=== PATIENT | male | born 1965 | race Hispanic/Latino ===

== ENCOUNTER 2020-05-11 12:30 | Emergency (ER) | payer OTHER ==
[2020-05-11] MEDS ORDERED: ONDANSETRON HCL 4 MG/2 ML VIAL ONE (13:13)
[2020-05-11] MEDS ORDERED: SODIUM CHLORIDE 0.9% 500ML 500 ML IV ONE (13:13)
[2020-05-11 13:18] LABS: BASOPHILS % (AUTO) 0.6 % (0.0-5.0); EOSINOPHILS % (AUTO) 3.4 % (0.0-8.0); HEMATOCRIT 45.1 % (42-54); MEAN CORPUSCULAR HEMOGLOBIN 31.4 pg (27.0-33.0); MEAN CORPUSCULAR HGB CONC 36.6 g/dL (32.0-36.0); MEAN CORPUSCULAR VOLUME 85.9 fL (79-99); MONOCYTES % (AUTO) 8.5 % (3.0-13.0); NEUTROPHILS % (AUTO) 59.3 % (40.0-77.0); PLATELET COUNT (AUTO) 198 K/uL (130-400); RED BLOOD CELL COUNT(AUTO) 5.25 MIL/uL (4.50-6.20); RED CELL DISTRIBUTION WIDTH 12.2 % (11.0-15.5); WHITE BLOOD COUNT (AUTO) 8.6 K/uL (4.8-10.8)
[2020-05-11 13:35] LABS: CREATININE 0.8 mg/dL (0.5-1.5); POTASSIUM 3.7 mmol/L (3.5-5.1)
[2020-05-11 13:39] LABS: ALBUMIN 4.3 g/dL (3.5-5.0); BILIRUBIN,DIRECT 0.2 mg/dL (0.0-0.3); BILIRUBIN,TOTAL 2.1 mg/dL (0.2-1.0); TOTAL PROTEIN, SERUM 7.4 g/dL (6.0-8.3)
== END 2020-05-11 16:19 | disposition home or self-care (01) ==
LOC: EDH 12:30
DX: R42 Dizziness and giddiness (principal)
CPT/HCPCS: 36415; 70450; 80048; 80076; 82550; 84484 ×2; 85025; 93005; 96361; 96374; 99285; J2405; J7040

== ENCOUNTER 2022-06-13 07:56 | Day surgery (SDC) | payer OTHER ==
[2022-06-11 14:08] VITALS: BP 140/81
[~2022-06-13] VITALS: Ht 175.3 cm; Wt 109.8 kg
[2022-06-13] VITALS (25 sets, daily range): BP systolic 130–189; BP diastolic 71–110
[2022-06-13] MEDS: CEFTRIAXONE 1G VIAL IVP SCH ×2 (06:00→09:00)
[~2022-06-13 07:56] MED LIST: TAMS-1 PO
[2022-06-13] MEDS ORDERED: LACTATED RINGERS 1000ML 1,000 ML IV ONE (08:20)
[2022-06-13] MEDS ORDERED: ROSU10TA28 PO (08:39)
[2022-06-13] MEDS ORDERED: PROPOFOL 10 MG/ML 20ML VIAL IV ONE (08:57)
[2022-06-13] MEDS ORDERED: MIDAZOLAM HCL 1 MG/ML 2ML VIAL ONE (08:57)
[2022-06-13] MEDS ORDERED: SUCCINYLCHOLINE 200MG/10ML SYR ONE (08:57)
[2022-06-13] MEDS ORDERED: FENTANYL CITRATE PF 50 MCG/1 ML 2ML VIAL ONE (08:58)
[2022-06-13] MEDS ORDERED: ROCURONIUM 10MG/1ML SYR 10 MG/ML ML ONE ×2 (08:58→09:33)
[2022-06-13] MEDS ORDERED: BACITRACIN 28.4 GM OINT TP ONE (10:13)
[2022-06-13] MEDS ORDERED: NEOSTIGMINE 5MG/5ML SYR IV ONE (10:18)
[2022-06-13] MEDS ORDERED: GLYCOPYRROLATE 1 MG/5 ML SYRINGE ONE ×2 (10:18→10:55)
[2022-06-13] MEDS ORDERED: HYDRALAZINE 20MG/ML VIAL ONE (10:42)
[2022-06-13] MEDS ORDERED: MEPERIDINE-PF 25 MG/ML SYG ONE ×2 (10:46→10:58)
[2022-06-13] MEDS ORDERED: ONDANSETRON 4MG INJ ONE ×2 (11:14→12:58)
[2022-06-13] MEDS ORDERED: PHENAZOPYRIDINE HCL 200 MG TABLET ONE (12:34)
== END 2022-06-13 14:00 | disposition home or self-care (01) ==
LOC: DAH 07:56
PROVIDERS: ATTEND Urology
DX: N35.819 Other urethral stricture, male, unspecified site (principal); N48.0 Leukoplakia of penis; Q54.8 Other hypospadias; R39.16 Straining to void; E66.9 Obesity, unspecified; Z82.3 Family history of stroke; Z98.890 Other specified postprocedural states; Z79.899 Other long term (current) drug therapy; Z87.891 Personal history of nicotine dependence
CPT/HCPCS: 87426; 55150; 52281; A6260; J7120 ×2; A4344; A4354; J3010; J0330; J3490 ×2; J2710; J0360; J0696; J2250; J2704; J2405 ×2; J2175 ×2; A4358; C1769; A4215; A4223; A4222; A4221; A4663; A4600; A4510

== ENCOUNTER 2023-05-02 13:58 | Emergency (ER) | payer OTHER ==
[~2023-05-02] VITALS: Ht 175.3 cm; Wt 110.2 kg
[~2023-05-02 13:58] MED LIST changes: +ROSU10TA28 PO
[2023-05-02 15:06] LABS: BASOPHILS % (AUTO) 0.3 % (0.0-5.0); EOSINOPHILS % (AUTO) 1.5 % (0.0-8.0); HEMATOCRIT 47.1 % (42-54); LYMPHOCYTES % (AUTO) 18.8 % (21.0-51.0); MEAN CORPUSCULAR HEMOGLOBIN 31.5 pg (27.0-33.0); MEAN CORPUSCULAR VOLUME 89.9 fL (79-99); MONOCYTES % (AUTO) 8.7 % (3.0-13.0); NEUTROPHILS % (AUTO) 70.4 % (40.0-77.0); PLATELET COUNT (AUTO) 220 K/uL (130-400); RED BLOOD CELL COUNT(AUTO) 5.24 MIL/uL (4.50-6.20); RED CELL DISTRIBUTION WIDTH 12.7 % (11.0-15.5); WHITE BLOOD COUNT (AUTO) 14.3 K/uL (4.8-10.8)
[2023-05-02 15:19] LABS: CREATININE 1.2 mg/dL (0.5-1.5); POTASSIUM 4.1 mmol/L (3.5-5.1)
[2023-05-02 15:23] LABS: ALBUMIN 3.9 g/dL (3.5-5.0); TOTAL PROTEIN, SERUM 7.6 g/dL (6.0-8.3)
[2023-05-02] MEDS ORDERED: LIDOCAINE HCL 1% 20 ML VIAL ONE (17:32)
[2023-05-02] MEDS ORDERED: ONDANSETRON ODT 4MG TAB ONE (18:51)
[2023-05-02] MEDS ORDERED: MORPHINE 5 MG/ML VIAL (5MG OR GREATER DOSE) IM ONE (19:00)
[2023-05-02 19:04] VITALS: BP 131/60; PULSE 78; RESP 16; O2SAT 98
== END 2023-05-02 19:08 | disposition home or self-care (01) ==
LOC: EDH 13:58
DX: L02.211 Cutaneous abscess of abdominal wall (principal); Z90.49 Acquired absence of other specified parts of digestive tract; Z79.899 Other long term (current) drug therapy
CPT/HCPCS: 99283; 80053; 85025; 87070; 87076; 87077; 87186; 83605; 36415; 96372; J2270

== ENCOUNTER 2023-10-16 15:22 | Emergency (ER) | payer BC, OTHER ==
[~2023-10-16] VITALS: Ht 175.3 cm; Wt 104.3 kg
[2023-10-16 15:41] VITALS: TEMP 102.6
[2023-10-16] MEDS ORDERED: ACETAMINOPHEN 500 MG TABLET PO ONE (16:00)
[2023-10-16 16:20] LABS: INFLUENZA TYPE A Negative For Type A (NEGATIVE); INFLUENZA TYPE B Negative For Type B (NEGATIVE)
[2023-10-16 16:21] LABS: SARS-CoV-2, RNA, NAAT NEGATIVE SARS CoV-2 (NEGATIVE)
[2023-10-16 16:24] LABS: RAPID GROUP A STREP negative (NEGATIVE)
[2023-10-16 16:35] VITALS: BP 124/74; PULSE 88; RESP 18; O2SAT 98
== END 2023-10-16 16:43 | disposition home or self-care (01) ==
LOC: EDH 15:22
DX: B34.9 Viral infection, unspecified (principal); Z20.822 Contact with and (suspected) exposure to COVID-19; Z79.899 Other long term (current) drug therapy; Z90.49 Acquired absence of other specified parts of digestive tract
CPT/HCPCS: 87635; 87804; 87880